=== PATIENT | male | born 1980 | race Caucasian/White ===

== ENCOUNTER → 2018-07-13 | Outpatient (CLI) | payer OTHER ==
[~2018-07-13] MED LIST: IBUP200T58 PO; IOHEXOL 180 MG/ML 10 ML VIAL. ONE; LIDOCAINE 2% PF 2ML VIAL. ONE; methylPREDNISolone ACETATE 40 MG/ML VIAL. ONE; methylPREDNISolone ACETATE 80 MG/ML VIAL. ONE
--- NOTE | 2018-07-14 02:21 | PAIN ---
DATE OF SERVICE: 07/13/2018 INITIAL CONSULTATION FOR PAIN CLINIC CHIEF COMPLAINT: Low back, bilateral lower extremity pain. HISTORY OF PRESENT ILLNESS: This is a 38-year-old male who presents with history of pain in the low back and bilateral hips and lower extremities present since 2005. The patient was injured in active service . He has had pain ever since. This has been getting worse now over the past few months in the low back, into the bilateral lower extremities, radiating all the way to the feet, somewhat worse on the right than the left but present bilaterally. The patient reports it is worse with standing, walking, changing positions, becoming more constant, describes as numbness and tingling, radiating and aching as noted. The patient reports the pain is worse with these activities, difficulty sleeping at night. He has to sleep on his side and on his back awakens him frequently from sleep. The patient reports it does not affect his bowel or bladder control but does affect his ability to walk with a radiating pain significantly, not using any assistive devices; however, the patient believes epidural injections in 2006 in outside facility and physical therapy in 2018 as well, locally the [facility] in [place], [place] without significant decrease in pain but it did help slightly. The patient reports that tramadol has been helping. He has tried Advil, Tylenol and other nonsteroidals in the past without significant improvement. The patient did have MRI scan of the lumbar spine showing a small posterior disk osteophyte complex at L4-L5 causing minimal central canal narrowing at the levels without significant herniation or significant narrowing. The patient rates the disability rate from 0-10, 10 being the worst, is an 8 with family home responsibilities, recreation and occupation, 10 with sexual behavior, 7 with social activity and self-care and 5 with life support activities. PAST MEDICAL HISTORY: Significant for arthritis, headaches, cigarette smoking half a pack a day and continues to smoke for the past 15 years. PAST SURGICAL HISTORY: Previous surgeries include LASIK eye surgery and a testicular surgery in the past. CURRENT MEDICATIONS: Include Advil and tramadol. FAMILY HISTORY: Significant for no major medical problems or conditions he is aware of. SOCIAL HISTORY: The patient does not drink alcohol. Smokes half pack of cigarettes, has for 15 years. Does not use any illegal, illicit or recreational drugs. He is single. Lives locally in [place], [place] and is a computer software solutions architect. REVIEW OF SYSTEMS: The patient's review of systems is positive for those items mentioned in history of present illness. All systems reviewed and otherwise negative. It is complete, full and well documented on the patient's chart. PHYSICAL EXAMINATION: VITAL SIGNS: His blood pressure 122/85, pulse 90, respirations 18, temperature 98.5 degrees Fahrenheit, height 5 feet 10 inches and weight is 269 pounds. GENERAL: The patient is awake, alert, oriented, appropriate and very pleasant demeanor. HEENT: Head shows normocephalic and atraumatic. Extraocular movements are intact and symmetrical. Oral cavity: Mucous membranes moist and pink. Dentition is intact. NECK: Shows anterior throat supple without palpable lymphadenopathy noted. Swallow reflex is symmetrical. CHEST: Shows normal on inspection. Breath sounds clear to auscultation bilaterally. HEART: Shows S1 and S2 clear. No murmurs auscultated. ABDOMEN: Soft, nontender and nondistended. No palpable organomegaly is noted. No rebound or guarding demonstrated. BACK: Shows spine grossly in the midline. Normal appearing thoracic kyphosis and lumbar lordotic curvature. Lumbar paraspinous muscle shows symmetrical on inspection, on palpation shows some moderate tenderness diffusely without radiation. The patient's back shows good rotational motion both laterally greater than 10 degrees, right and left as well as extension greater than 10 degrees, forward flexion to 45 degrees of the lumbar spine without significant pain reported as well. No tenderness over the spinous processes, sacrum or sacroiliac regions. EXTREMITIES: The patient's lower extremities show deep tendon reflexes at 2+ in the patellar, 1+ tendo-calcaneus tendons are equal. Motor exam is 4/5 on the right dorsiflexion, extension 5/5 on the left, quadriceps and hamstring flexion 5/5 bilaterally. The patient's peripheral pulses are 1+ posterior tibia. No peripheral edema is noted. Straight leg raise noted to be positive on the right about 45 degrees, negative on the left. Gaenslen's and Dequan's maneuvers are negative bilaterally. The patient is able to stand, stand on his toes without difficulty or loss of balance, walks with a normal appearing gait, does not appear to favor the right or left lower extremity, not using any assistive devices. SKIN: Shows warm and dry, good turgor. No edema. No sores, rashes or bruising. IMPRESSION: 1. This is a 37-year-old male with long history since 2006 injury in active , now with significant pain still flaring up over the past several months with radiation in the bilateral lower extremities, right greater than left in a radicular fashion. 2. MRI scan of lumbar spine as noted. 3. History of arthritis. PLAN: Options were discussed with the patient including conservative medical management, physical therapy, interventional techniques. He would like to pursue interventional techniques. We discussed a lumbar epidural steroid injection using description as well as anatomical models to describe the procedure. Risks were again discussed including, but not limited to bleeding, infection, possibility of epidural hematoma and subsequent neurological compromise, dural puncture, headaches, spinal cord and/or nerve damage, side effects of steroid medication and poor results regarding pain control. The patient understands and wished to proceed. The patient will return to the clinic in approximately 2 weeks for followup, was counseled as to return appointment, activity level and side effects to be aware of. DIAGNOSES: Lumbar radiculopathy with lumbar degenerative disk disease and lumbar spondylosis. PROCEDURES: Lumbar epidural steroid injection, translaminar approach at the L4-L5 level using C-arm fluoroscopic guidance under sterile prep and drape using local anesthetic. MEDICATION INJECTED: A total of 120 mg Depo-Medrol plus 10 mL of preservative-free normal saline and 2 mL of Isovue for contrast. CONDITION AT DISCHARGE: Stable. The patient tolerated the procedure well and had no complications. BECCA KAY MD DR: LUIS MIGUEL/frida JOB#: [id number] / [id number]
== END | disposition home or self-care (01) ==
LOC: PNCL 12:34
PROVIDERS: ATTEND Anesthesiology
DX: M51.16 Intervertebral disc disorders with radiculopathy, lumbar region (principal); M47.816 Spondylosis without myelopathy or radiculopathy, lumbar region; M19.90 Unspecified osteoarthritis, unspecified site; F17.210 Nicotine dependence, cigarettes, uncomplicated; Z98.890 Other specified postprocedural states; Z79.899 Other long term (current) drug therapy
CPT/HCPCS: 62323; J1030; J1040; J2001; Q9965

== ENCOUNTER → 2018-07-29 | Outpatient (CLI) | payer OTHER ==
[~2018-07-29] MED LIST changes: +BUPIVACAINE MPF 0.25% 10 ML VIAL. ONE; -LIDOCAINE 2% PF 2ML VIAL. ONE; +LIDOCAINE 2% PF Vial for OR 5 ML VIAL. ONE
--- NOTE | 2018-07-29 21:53 | PAIN ---
DATE OF SERVICE: 07/29/2018 PROGRESS NOTE FOR PAIN CLINIC DIAGNOSIS: Lumbar radiculopathy with lumbar degenerative disk disease and lumbosacral spondylosis. HISTORY OF PRESENT ILLNESS: The patient is a 38-year-old male who returns for followup status post lumbar epidural steroid injection x 1. The patient reports about 30% improvement ____ the pain in the legs is much better than it was, but the pain in the back is still fairly significant. The patient reports it is worse with standing, walking, sitting for prolonged periods, it is aching, dull, shooting, becoming more unbearable, more severe, some radiating in the posterior gluteus, but not nearly as it was prior to the epidural injection. The patient reports the pain is 7 on a scale of 10 at its worst, 4 on average, 4 at its least and is 4 today. The patient reports no new motor or sensory deficits; worse again with standing and sitting, even prolonged sitting; better with lying down; does not bother him much at night; does not awaken him from sleep at night. The patient reports no new motor or sensory deficits, no new bowel or bladder incontinence or other complaints. PHYSICAL EXAMINATION: VITAL SIGNS: The patient's blood pressure is 149/103, pulse is 90, respirations 18, temperature 97.9 degrees Fahrenheit, height is 5 feet 10 inches, weight is 265 pounds. GENERAL: The patient is awake, alert, oriented, appropriate, very pleasant demeanor. HEENT: Head shows normocephalic, atraumatic. Extraocular movements are intact, symmetrical. Oral cavity: Mucous membranes moist and pink. The patient has full [place] and moustache. NECK: Shows anterior throat supple without palpable lymphadenopathy noted. Swallow reflex symmetrical. CHEST: Shows normal with inspection. Breath sounds clear to auscultation bilaterally. HEART: Shows S1, S2 clear. No murmurs auscultated. ABDOMEN: Soft, nontender, nondistended. No palpable organomegaly is noted. No rebound or guarding demonstrated. BACK: Shows spine grossly in the midline. Lumbar paraspinous muscle shows symmetrical on inspection; on palpation shows some moderate tenderness diffusely throughout the upper, middle and lower distribution of paraspinous muscles, but only diffusely and uniformly throughout the upper, middle and lower distribution bilaterally. No trigger points, no radiation of pain, no tenderness over the spinous processes, sacrum or sacroiliac regions. The patient also has some increased tenderness with extension of the spine and axial loading of the low back with pain bilaterally, slightly worse on the right than the left. Lateral rotation to the right at 10 degrees is moderately tender as well as is moderate tenderness to left rotation at 10 degrees. Forward flexion at 45 degrees does not reproduce any pain. EXTREMITIES: Lower extremities show deep tendon reflexes 2+ in the patellar, 1+ tendo calcaneus tendons. Motor exam is approximately 4 on a scale of 5 with right dorsiflexion, extension; 5/5 on the left. Peripheral pulses are 1+ posterior tibia. No peripheral edema is noted bilaterally. Options were discussed with the patient. The patient's old chart was reviewed as was his current medication regimen updated. Current review of systems updated today as well. We will proceed with bilateral L4-L5 and L5-S1 facet joint injections with fluoroscopic guidance today. Risks were again discussed including, but not limited to bleeding, infection, possibility of intravascular injection sequelae, epidural hematoma, subsequent neurological compromise, dural puncture, headaches, spinal cord and/or nerve damage, side effects of steroid medication and poor results regarding pain control. The patient understands and wished to proceed. He is to return to the clinic in approximately 2 weeks for followup. He was counseled as to return appointment, activity level and side effects to be aware of. DIAGNOSIS: Lumbar degenerative disk disease with lumbar and lumbosacral spondylosis. PROCEDURES: Bilateral L4-L5 and L5-S1 facet joint injections using C-arm fluoroscopic guidance under sterile prep and drape using local anesthetic. MEDICATION INJECTED: A total of 120 mg Depo-Medrol plus a total of 4 mL of 0.25% bupivacaine and total of 2 mL of Isovue for contrast. CONDITION AT DISCHARGE: Stable. The patient tolerated the procedure well, had no complications. BECCA KAY MD DR: LUIS MIGUEL/frida JOB#: [id number] / [id number]
== END | disposition home or self-care (01) ==
LOC: PNCL 13:06
PROVIDERS: ATTEND Anesthesiology
DX: M51.16 Intervertebral disc disorders with radiculopathy, lumbar region (principal); M47.817 Spondylosis without myelopathy or radiculopathy, lumbosacral region
CPT/HCPCS: 64493; 64494; J1030; J1040; J2001; J3490; Q9965

== ENCOUNTER → 2018-08-26 | Outpatient (CLI) | payer OTHER ==
[~2018-08-26] MED LIST changes: -BUPIVACAINE MPF 0.25% 10 ML VIAL. ONE; -LIDOCAINE 2% PF Vial for OR 5 ML VIAL. ONE
--- NOTE | 2018-08-26 21:13 | PAIN ---
DATE OF SERVICE: 08/26/2018 PROGRESS NOTE FOR PAIN CLINIC DIAGNOSES: Lumbar radiculopathy with lumbar degenerative disk disease and lumbar spondylosis. HISTORY OF PRESENT ILLNESS: The patient is a 38-year-old male who returns for followup status post lumbar epidural steroid injection x 1 and bilateral facet joint injections on his last visit. The patient reports the facet joint did not help his pain much, still significant pain in the low back, bilateral lower extremities, slightly worse on the right than the left but present bilaterally. The patient reports some cramping in the lower leg with pain radiating to posterior gluteus, posterior lateral thighs, anterior thighs, medial thighs, medial calves and posterior calves, again with cramping. The patient reports it is aching, sharp, tight, shooting, radiating, becoming more constant, worse with activity, standing, walking, changing positions, awakens him from sleep at least once at night, rated it as an 8 on a scale of 10 at its worst, 7 on average and a 6 at its least and is a 7 today. The patient reports no new motor or sensory deficit and no bowel or bladder incontinence but still significant pain is noted. The patient did well for his first injection, which was a lumbar epidural steroid injection by about 30% and his legs are doing much better but the back pain was significant and we tried the lumbar facet injection; however, this has actually not helped much at all. PHYSICAL EXAMINATION: VITAL SIGNS: Today, the patient's blood pressure 117/77, pulse 84, respirations are 18 and temperature is 98.0 degrees Fahrenheit. Height is 5 feet 10 inches and weight is 262 pounds. GENERAL: The patient is awake, alert, oriented, appropriate and very pleasant demeanor. HEENT: Head shows normocephalic and atraumatic. Extraocular movements are intact and symmetrical. Oral cavity: Mucous membranes moist and pink. Dentition is intact. NECK: Shows anterior throat supple without palpable lymphadenopathy noted. Swallow reflex symmetrical. CHEST: Shows normal with inspection. Breath sounds clear to auscultation bilaterally. HEART: Shows S1 and S2 clear. No murmurs auscultated. ABDOMEN: Soft, nontender and nondistended. Obese. No palpable organomegaly is noted. BACK: Shows spine grossly in the midline. Normal-appearing thoracic kyphosis and lumbar lordotic curvature. Lumbar paraspinous muscle shows diffuse tenderness throughout the upper and lower distribution of the paraspinous muscles, more so in the lower distributions, but only diffusely without radiation. No tenderness with rotational motion at this time with some minor tenderness with extension but not with forward flexion at 45 degrees. EXTREMITIES: Lower extremities show deep tendon reflexes are 2+ in the patella and 1+ tendo-calcaneus tendons. Motor exam is strong with approximately 4 on a scale of 5, right and 5/5 on the left dorsiflexion and extension. Peripheral pulses are 1+ posterior tibia. No peripheral edema is noted bilaterally. Options were discussed with the patient. The patient's old chart was reviewed as well as his current medication regimen updated. Current review of systems updated today as well. We will proceed with lumbar epidural steroid injections, the second in this series today with fluoroscopic guidance. Risks were again discussed including, but not limited to bleeding, infection, possibility of epidural hematoma, subsequent neurological compromise, dural puncture, headaches, spinal cord and/or nerve damage, side effects of steroid medication and poor results regarding pain control. The patient understands and wished to proceed. The patient will return to the clinic in approximately 2 weeks for followup, was counseled as to return appointment, activity level and side effects to be aware of. DIAGNOSES: Lumbar radiculopathy with lumbar degenerative disk disease and lumbar spondylosis. PROCEDURE: Lumbar epidural steroid injection, translaminar approach at L4-L5 level using C-arm fluoroscopic guidance under sterile prep and drape using local anesthetic. MEDICATION INJECTED: A total of 120 mg Depo-Medrol plus 10 mL of preservative-free normal saline and 2 mL of Isovue for contrast. CONDITION AT DISCHARGE: Stable. The patient tolerated the procedure well and had no complications. BECCA KAY MD DR: LUIS MIGUEL/frida JOB#: [id number] / [id number]
== END | disposition home or self-care (01) ==
LOC: PNCL 13:55
PROVIDERS: ATTEND Anesthesiology
DX: M51.16 Intervertebral disc disorders with radiculopathy, lumbar region (principal); M47.26 Other spondylosis with radiculopathy, lumbar region
CPT/HCPCS: 62323; J1030; J1040; Q9965

== ENCOUNTER → 2018-09-22 | Outpatient (CLI) | payer OTHER ==
[~2018-09-22] MED LIST changes: -IOHEXOL 180 MG/ML 10 ML VIAL. ONE; -methylPREDNISolone ACETATE 40 MG/ML VIAL. ONE; -methylPREDNISolone ACETATE 80 MG/ML VIAL. ONE
--- NOTE | 2018-09-22 19:14 | PAIN ---
DATE OF SERVICE: 09/22/2018 DIAGNOSES: Lumbar radiculopathy with lumbar degenerative disk disease and lumbar spondylosis. HISTORY OF PRESENT ILLNESS: The patient is a 38-year-old male who returns for followup status post lumbar epidural steroid injection x 2 and facet joint injections bilaterally L4-L5 and L5-S1. The patient reports only about 20%-30% improvement overall in the low back pain, still significant pain in the low back, some in the left lower extremity as well in the posterior gluteus, posterior lateral thigh, anterior thigh, but less in the leg, more in the back. The patient reports it as aching, dull, tight, shooting at times, cramping, sometimes radiating in the left leg and becoming more constant, worse with activity, standing, walking, changing positions. The patient reports it awakens him from sleep at least once or twice a night. Reports as a 7 on a scale of 10 at its worse, 5 on average, 4 at its least and is a 5 today. The patient reports no new motor or sensory deficits, no new bowel or bladder incontinence or other complaints. PHYSICAL EXAMINATION: VITAL SIGNS: The patient's blood pressure 119/92, pulse 87, respirations 18, temperature 98.2 degrees Fahrenheit, height is 5 feet 10 inches, weight is 265 pounds. GENERAL: The patient is awake, alert, oriented, appropriate, very pleasant demeanor. HEENT: Shows normocephalic, atraumatic. Extraocular movements are intact and symmetrical. Oral cavity: Mucous membranes moist and pink. Dentition is intact. NECK: Shows anterior throat supple without palpable lymphadenopathy noted. Swallow reflex is symmetrical. CHEST: Shows normal on inspection. Breath sounds are clear to auscultation bilaterally. HEART: Shows S1, S2 clear. No murmurs auscultated. ABDOMEN: Soft, nontender, nondistended. No palpable organomegaly is noted. No rebound or guarding demonstrated. BACK: Shows spine grossly in the midline. Normal appearing thoracic kyphosis and lumbar lordotic curvature. Lumbar paraspinous musculature shows symmetrical on inspection and palpation shows some moderate tenderness bilaterally, but only diffusely without radiation. The patient has good rotational motion of lumbar spine, both laterally as well as extension and flexion without difficulty. EXTREMITIES: The patient's lower extremities show deep tendon reflexes at 2+ in the patellar, 1+ tendo calcaneus tendons. Motor exam is approximately 4 on a scale of 5 with right dorsiflexion, extension, 5/5 on the left. Peripheral pulses are 1+ posterior tibial. No peripheral edema is noted bilaterally. PLAN: Options were discussed with the patient. The patient's old chart was reviewed as his current medication regimen updated. Current review of systems is updated today as well. We will proceed with holding any further injections at this time by patient's wish. He is going to start some water therapy in the near future, has been [facility] and we discussed potentially a third lumbar epidural steroid injection in the future, but would like to try the water therapy first. We will have him follow up at this time on as needed basis. The patient is encouraged to increase his activity as tolerated, maintain stretching and strengthening exercises as well. BECCA KAY MD DR: LUIS MIGUEL/frida JOB#: [id number] / [id number]
== END | disposition home or self-care (01) ==
LOC: PNCL 12:55
PROVIDERS: ATTEND Anesthesiology
DX: M51.16 Intervertebral disc disorders with radiculopathy, lumbar region (principal); M47.896 Other spondylosis, lumbar region
CPT/HCPCS: G0463